=== PATIENT | male | born 1995 ===

== ENCOUNTER 2018-05-07 08:58 | Day surgery (SDC) | payer BC ==
[~2018-05-07] VITALS: Ht 177.8 cm; Wt 59.9 kg
[2018-05-07] MEDS ORDERED: MIDAZOLAM 2 MG/2 ML VIAL IVP PRN (09:05)
[2018-05-07] MEDS ORDERED: NORMOSOL R SOLN(*) 1000 ML BAG 1,000 ML IV PRN (09:05)
[2018-05-07] MEDS ORDERED: LIDOCAINE/SOD BICARB 8.4% SYR ID ONE (09:05)
[2018-05-07] MEDS ORDERED: FAMOTIDINE 20 MG/50 ML PREMIX IVPB ONE (09:05)
[2018-05-07 09:07] VITALS: BP 124/92
[2018-05-07] MEDS ORDERED: NORMOSOL R SOLN(*) 1000 ML BAG 1,000 ML IV ONE (09:15)
[2018-05-07] MEDS ORDERED: FAMOTIDINE(*) 20MG/50ML PREMIX 50 ML IVPB ONE (09:15)
[2018-05-07] MEDS ORDERED: LIDOCAINE/SOD BICARB 8.4% SYR ONE (09:15)
[2018-05-07] MEDS ORDERED: SILVER NITRATE SWABS 10 PKG TP ONE (09:23)
[2018-05-07] MEDS ORDERED: fentaNYL CITR 100 MCG/2 ML AMP ONE ×3 (09:26→09:58)
[2018-05-07] MEDS ORDERED: PROPOFOL EMUL(*) 10MG/ML 20 ML 20 ML ONE (09:27)
[2018-05-07] MEDS ORDERED: LIDOCAINE MPF 1% 5 ML VIAL ONE (09:27)
[2018-05-07] MEDS ORDERED: DEXAMETHASONE SOD PHOS 10MG/ML ONE (09:27)
[2018-05-07] MEDS ORDERED: ONDANSETRON 4 MG/2 ML VIAL ONE (09:27)
[2018-05-07] MEDS ORDERED: ROCURONIUM BROM 10 MG/ML 5 ML ONE (09:30)
[2018-05-07] MEDS ORDERED: SUGAMMADEX SOD 200 MG/2 ML SDV ONE (09:42)
[2018-05-07] MEDS ORDERED: diphenhydrAMINE 50 MG/ML VIAL ONE (10:29)
[2018-05-07] MEDS ORDERED: OXYC-865 PO (10:56)
[2018-05-07 11:15] VITALS: BP 148/95
--- NOTE | 2018-05-07 11:27 | OPERATIVE REPORT 1 ---
EVENT DATE: May 07, 2018 SURGEON: Marcellus Salas MD ANESTHESIOLOGIST: Wilian Lockhart MD ANESTHESIA: LMA PREOPERATIVE DIAGNOSIS 1. Acute tonsillitis. 2. Tonsillar hypertrophy. POSTOPERATIVE DIAGNOSIS 1. Acute tonsillitis. 2. Tonsillar hypertrophy. PROCEDURE PERFORMED Tonsillectomy. INDICATIONS Please refer to the preoperative noted. DESCRIPTION OF PROCEDURE The patient was positively identified in the preoperative area. He was accompanied there by his mother. Risks and benefits were explained including, but not limited to, bleeding, infection and those associated with anesthesia. He acknowledged understanding of those risks. He was then brought back to the operating room, placed supine on the operating table and anesthesia was administered. Once asleep, the patient was positioned, prepped and draped in the usual sterile fashion. A McIvor mouth gag was placed in the patient's oral cavity. Red rubber catheter was placed through the right nostril and utilized to retract the soft palate. The patient was noted to have 4+ tonsils. The right tonsil was grasped with curved Allis forceps and dissected from the lateral pharyngeal wall. Bovie electrocautery was utilized and the contralateral tonsil was removed. Hemostasis was further obtained with suction bulb and electrocautery. The patient was then returned to anesthesia for emergence. Estimated blood loss was 25 mL. No complications. MTDD
[2018-05-07 11:29] VITALS: BP 137/91
[2018-05-07 11:39] VITALS: BP 135/91
== END 2018-05-07 11:15 | disposition home or self-care (01) ==
LOC: OR 08:58
PROVIDERS: ATTEND Otolaryngology
DX: J03.90 Acute tonsillitis, unspecified (principal)
CPT/HCPCS: 42826; 88304; J1100; J1200; J2001; J2250; J2405; J2704; J3010; J3490